=== PATIENT | female | born 1950 | race African-American/Black ===

== ENCOUNTER → 2016-09-14 | Outpatient (CLI) | payer MEDICARE, BC | LOC: WI 15:14 | PROVIDERS: ATTEND Internal Medicine | DX: Z12.31 Encounter for screening mammogram for malignant neoplasm of breast (principal) | CPT/HCPCS: 77067; G0202 ==

== ENCOUNTER → 2016-12-29 | Day surgery (SDC) | payer MEDICARE, BC ==
[~2016-12-29] MED LIST: LIDOCAINE 2% JELLY 5 ML TUBE ONE
== END ==
LOC: END 08:48
PROVIDERS: ATTEND Internal Medicine Gastroenterology
PROC: 4A0B7BZ Measurement of Gastrointestinal Pressure, Via Natural or Artificial Opening (ICD-10-PCS; principal; 2016-12-29)
DX: R13.10 Dysphagia, unspecified (principal)
CPT/HCPCS: 91010

== ENCOUNTER 2017-05-06 11:14 | Emergency (ER) | payer MEDICARE, BC ==
[2017-05-06] MEDS ORDERED: NORMAL SALINE 1000 ML 1,000 ML IV PRN (11:24)
[2017-05-06] MEDS ORDERED: KETOROLAC TROMETHAMINE INJ/PF 30 MG/1 ML SDV IV ONE (11:24)
[2017-05-06] MEDS ORDERED: ONDANSETRON HCL INJ/PF 4 MG/2 ML SDV IV ONE (11:24)
--- NOTE | 2017-05-06 11:27 | ER Document Report ---
ED Cardiac - General Stated Complaint: CHEST PAIN Time Seen by Provider: 05/06/17 11:18 Mode of Arrival: Stretcher Information source: Patient TRAVEL OUTSIDE OF THE [place] IN LAST 30 DAYS: No - HPI Patient complains to provider of: Chest pain Was the onset of pain: Sudden Is the pain a: New problem Chest pain location: Substernal Quality of pain: Sharp, Stabbing Chest pain radiation location: Neck - right Severity now: None Severity at worst: Moderate Chest pain precipitating factors: At Rest Cardiac risk factors: Hypertension, Dyslipidemia Positive cardiac history: No Associated symptoms: Headache Exacerbated by: Denies Relieved by: Nothing Similar symptoms previously: No Recently seen / treated by doctor: No Notes: Patient is a 67-year-old female with a history of hypertension, high cholesterol , presenting to the emergency room today complaining of sharp stabbing chest pain with cramping in her jaw and right-sided neck pain that started while she was sitting at her desk at work, 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, she reports the symptoms lasted 20-30 minutes and have since resolved, she does have a slight headache at this point in time as she did receive nitroglycerin via EMS as well as for aspirin in route, she denies any diaphoresis, no shortness of breath, she has been having intermittent dizzy spells over the last few weeks - Related Data Allergies/Adverse Reactions: oxycodone HCl [From Percodan] Allergy (Verified 03/25/14 16:33) oxycodone terephthalate [From Percodan] Allergy (Verified 03/25/14 16:33) Shellfish * [Shellfish] Allergy (Verified 03/25/14 16:33) tree nut Allergy (Verified 03/25/14 16:33) brazil nuts Allergy (Uncoded 03/25/14 16:33) Past Medical History - General Information source: Patient - Social History Smoking Status: Never Smoker Family History: CAD - Past Medical History Cardiac Medical History: Reports: Hx Hypercholesterolemia, Hx Hypertension Musculoskeltal Medical History: Reports Hx Arthritis Past Surgical History: Reports: Hx Gynecologic Surgery - bladder sling, Hx Hysterectomy, Hx Orthopedic Surgery, Hx Tonsillectomy - Immunizations Hx Diphtheria, Pertussis, Tetanus Vaccination: Yes Review of Systems - Review of Systems Constitutional: No symptoms reported EENT: No symptoms reported Cardiovascular: See HPI Respiratory: No symptoms reported Gastrointestinal: No symptoms reported Genitourinary: No symptoms reported Female Genitourinary: No symptoms reported Musculoskeletal: No symptoms reported Skin: No symptoms reported Hematologic/Lymphatic: No symptoms reported Neurological/Psychological: Headaches -: Yes All other systems reviewed and negative Physical Exam - Vital signs Vitals: Pulse Ox 94 05/06/17 11:15 Interpretation: Normal - General General appearance: Appears well, Alert - HEENT Head: Normocephalic, Atraumatic Eyes: Normal Pupils: PERRL - Respiratory Respiratory status: No respiratory distress Chest status: Nontender Breath sounds: Normal Chest palpation: Normal - Cardiovascular Rhythm: Regular Heart sounds: Normal auscultation Murmur: No - Abdominal Inspection: Normal Distension: No distension Bowel sounds: Normal Tenderness: Nontender Organomegaly: No organomegaly - Back Back: Normal, Nontender - Extremities General upper extremity: Normal inspection, Nontender, Normal color, Normal ROM , Normal temperature General lower extremity: Normal inspection, Nontender, Normal color, Normal ROM , Normal temperature, Normal weight bearing. No: Miya's sign - Neurological Neuro grossly intact: Yes Cognition: Normal Orientation: AAOx4 [place] Coma Scale Eye Opening: Spontaneous [place] Coma Scale Verbal: Oriented [place] Coma Scale Motor: Obeys Commands [place] Coma Scale Total: 15 Speech: Normal Motor strength normal: LUE, RUE, LLE, RLE Sensory: Normal - Psychological Associated symptoms: Normal affect, Normal mood - Skin Skin Temperature: Warm Skin Moisture: Dry Skin Color: Normal Course - Re-evaluation Re-evalutation: 05/06/17 13:28 Patient resting comfortably, asymptomatic at the present time, requesting something to eat, I did discuss with her that we will hold her for a second set of cardiac enzymes around 3:15 PM, patient is in agreement with this plan 05/06/17 15:49 Patient resting comfortably, reports feeling much better, remains asymptomatic and has eaten lunch without any difficulty, lab and imaging findings unremarkable with 2 sets of negative cardiac enzymes, patient will be discharged with instructions for follow-up and advised to return if any additional concerns, patient knowledge is understanding and agreement with this plan - Vital Signs Vital signs: Temp Pulse Resp BP Pulse Ox 17 121/70 78 L 05/06/17 15:01 05/06/17 15:01 05/06/17 15:01 - Laboratory Result Diagrams: 05/06/17 11:40 05/06/17 11:40 Laboratory results interpreted by me: 05/06/17 05/06/17 11:40 11:40 RBC 3.61 L Hct 33.9 L MCH 33.5 H Glucose 139 H Creatine Kinase 283 H - Diagnostic Test Radiology reviewed: Image reviewed, Reports reviewed - EKG Interpretation by Me EKG shows normal: Sinus rhythm Rate: Normal Rhythm: NSR Heart block present: 1st Degree When compared to previous EKG there are: No significant change Discharge - Discharge Clinical Impression: Chest pain Qualifiers: Chest pain type: unspecified Qualified Code(s): R07.9 - Chest pain, unspecified Condition: Stable Disposition: HOME, SELF-CARE Instructions: Chest Pain of Unclear Cause ([facility]) Additional Instructions: Follow up with your primary care provider in one to 2 days. Return to the emergency room immediately if symptoms worsen or any additional concerns. Forms: Return to Work Referrals: NIMO ANDREWS MD [Primary Care Provider] - Follow up as needed JOSE MANUEL LACY MD [ACTIVE STAFF] - Follow up as needed FAUZIA CANADA MD [ACTIVE STAFF] - Follow up as needed
[2017-05-06 11:52] LABS: ABSOLUTE BASOPHILS # (AUTO) 0.1 10^3/uL (0.0-0.2); ABSOLUTE EOSINOPHILS # (AUTO) 0.2 10^3/uL (0.0-0.6); ABSOLUTE LYMPHOCYTES (AUTO) 1.8 10^3/uL (0.5-4.7); ABSOLUTE MONOCYTES (AUTO) 0.6 10^3/uL (0.1-1.4); ABSOLUTE NEUT (AUTO) 6.8 10^3/uL (1.7-8.2); BASOPHILS % (AUTO) 0.8 % (0-2); EOSINOPHILS % (AUTO) 2.5 % (0-6); HEMATOCRIT 33.9 % (36.0-47.0); HEMOGLOBIN 12.1 g/dL (12.0-15.5); HGB HCT DIFFERENCE 2.4; LYMPHOCYTES % (AUTO) 19.1 % (13-45); MEAN CORPUSCULAR HEMOGLOBIN 33.5 pg (27.0-33.4); MEAN CORPUSCULAR HGB CONC 35.7 g/dL (32.0-36.0); MEAN CORPUSCULAR VOLUME 94 fl (80-97); MONOCYTES % (AUTO) 6.4 % (3-13); RED BLOOD COUNT 3.61 10^6/uL (3.72-5.28); RED CELL DISTRIBUTION WIDTH 12.5 % (11.5-14.0); SEGMENTED NEUTROPHILS % (AUTO) 71.2 % (42-78); WHITE BLOOD COUNT 9.5 10^3/uL (4.0-10.5)
--- NOTE | 2017-05-06 12:05 | RADIOLOGY REPORT (SQ) ---
EXAM DESCRIPTION: CHEST SINGLE VIEW COMPLETED DATE/TIME: 05/06/2017 11:50 am REASON FOR STUDY: bed 7 cp COMPARISON: April 2013 EXAM PARAMETERS: NUMBER OF VIEWS: One view. TECHNIQUE: Single frontal radiographic view of the chest acquired. RADIATION DOSE: NA LIMITATIONS: None. FINDINGS: LUNGS AND PLEURA: No opacities, masses or pneumothorax. No pleural effusion. MEDIASTINUM AND HILAR STRUCTURES: No masses. Contour normal. HEART AND VASCULAR STRUCTURES: Heart normal in size. Normal vasculature. BONES: Degenerative changes are identified in the thoracic spine HARDWARE: None in the chest. OTHER: No other significant finding. IMPRESSION: NO ACUTE RADIOGRAPHIC FINDING IN THE CHEST. TECHNICAL DOCUMENTATION: JOB ID: [id number]
[2017-05-06 12:14] LABS: ALANINE AMINOTRANSFERASE 32 U/L (9-52); ALBUMIN 3.5 g/dL (3.5-5.0); ALKALINE PHOSPHATASE 94 U/L (38-126); ANION GAP 10 (5-19); ASPARTATE AMINO TRANSFERASE 23 U/L (14-36); BILIRUBIN,DIRECT 0.3 mg/dL (0.0-0.4); BILIRUBIN,TOTAL 0.5 mg/dL (0.2-1.3); BLOOD UREA NITROGEN 18 mg/dL (7-20); CALCIUM 8.7 mg/dL (8.4-10.2); CARBON DIOXIDE 28 mmol/L (22-30); CHLORIDE 106 mmol/L (98-107); CREATINE KINASE 283 U/L (30-135); CREATININE RESULT 0.81 mg/dL (0.52-1.25); GLUCOSE 139 mg/dL (75-110); POTASSIUM 3.7 mmol/L (3.6-5.0); SODIUM 143.6 mmol/L (137-145); TOTAL PROTEIN 6.3 g/dL (6.3-8.2)
[2017-05-06 12:24] LABS: CREATINE KINASE MB 1.14 ng/mL (<4.55)
[2017-05-06 12:25] LABS: TROPONIN I < 0.012 ng/mL
[2017-05-06 15:15] VITALS: BP 121/70
--- NOTE | 2017-05-07 10:30 | EKG REPORT ---
SEVERITY:- ABNORMAL ECG - SINUS RHYTHM FIRST DEGREE AV BLOCK : Confirmed by: Esther Seymour 07-May-2017 10:29:15
== END 2017-05-06 16:04 | disposition home or self-care (01) ==
LOC: ER 11:14
DX: R07.89 Other chest pain (principal); I44.0 Atrioventricular block, first degree; I10 Essential (primary) hypertension; M54.2 Cervicalgia; R25.2 Cramp and spasm; R51 Headache; R42 Dizziness and giddiness; Z88.5 Allergy status to narcotic agent; Z91.013 Allergy to seafood; Z91.018 Allergy to other foods
CPT/HCPCS: 93005; 99285; 96374; 96375; 36415; 82553; 82550; 85025; 80053; 84484; 71010; 93010; J1885; J2405

== ENCOUNTER → 2017-06-01 | Outpatient (CLI) | payer MEDICARE, BC ==
--- NOTE | 2017-06-01 11:16 | RADIOLOGY REPORT (SQ) ---
EXAM DESCRIPTION: CT CHEST WITHOUT COMPLETED DATE/TIME: 06/01/2017 8:03 am REASON FOR STUDY: CHEST PAIN, UNSPECIFIED R10.13 EPIGASTRIC PAIN R07.9 CHEST PAIN, UNSPECIFIED COMPARISON: None. TECHNIQUE: CT scan performed of the chest without intravenous contrast. Images reviewed with lung, soft tissue and bone windows. Reconstructed coronal and sagittal MPR images reviewed. All images st ored on PACS. All CT scanners at this facility use dose modulation, iterative reconstruction, and/or weight based d osing when appropriate to reduce radiation dose to as low as reasonably achievable (ALARA). [facility]: Dose Right [facility]: CareDose [facility]: Dose Right [facility]: Teradose 4D [facility]: Smart Technologies RADIATION DOSE: Up-to-date CT equipment and radiation dose reduction techniques were employed. CTDIv ol: 19.4 mGy. DLP: 717 mGy-cm. mGy. LIMITATIONS: No technical limitations. FINDINGS: LUNGS AND PLEURA: No masses, infiltrates, pneumothorax. No pleural effusions, calcificati ons. HILAR AND MEDIASTINAL STRUCTURES: No identified masses or abnormal nodes. No obvious aneurysm. HEART AND VASCULAR STRUCTURES: No aneurysm. No pericardial effusion. Considerable coronary atherosc lerosis. UPPER ABDOMEN: No significant findings. Limited exam. THYROID AND OTHER SOFT TISSUES: No masses. No adenopathy. BONES: No significant finding. HARDWARE: None in the chest. OTHER: No other significant findings. IMPRESSION: Coronary atherosclerosis with no acute pulmonary disease. TECHNICAL DOCUMENTATION: JOB ID: [id number] Quality ID # [id number]: Final reports with documentation of one or more dose reduction techniques (e.g., Au tomated exposure control, adjustment of the mA and/or kV according to patient size, use of iterative reconstruction technique) 2010 [employer]- All Rights Reserved
--- NOTE | 2017-06-01 12:12 | RADIOLOGY REPORT (SQ) ---
EXAM DESCRIPTION: U/S ABDOMEN LIMITED W/O DOP COMPLETED DATE/TIME: 06/01/2017 9:21 am REASON FOR STUDY: EPIGASTRIC PAIN R10.13 EPIGASTRIC PAIN R07.9 CHEST PAIN, UNSPECIFIED COMPARISON: CT chest 06/01/2017 Abdominal ultrasound 05/22/2013 TECHNIQUE: Dynamic and static grayscale images acquired of the abdomen and recorded on PACS. Additio nal selected color Doppler and spectral images recorded. LIMITATIONS: Midline bowel gas FINDINGS: PANCREAS: Midline pancreas unremarkable LIVER: No masses. Echotexture normal. LIVER VASCULATURE: Normal directional flow of the main portal vein and hepatic veins. GALLBLADDER: No stones. Normal wall thickness. No pericholecystic fluid. ULTRASOUND-DETECTED FARRELL'S SIGN: Negative. INTRAHEPATIC DUCTS AND COMMON DUCT: CBD and intrahepatic ducts normal caliber. No filling defects. INFERIOR VENA CAVA: Normal flow. AORTA: Not well seen RIGHT KIDNEY: Normal size. Normal echogenicity. No solid or suspicious masses. No hydronephrosis. No calcifications. PERITONEAL AND RIGHT PLEURAL SPACE: No ascites or effusions. OTHER: No other significant findings. IMPRESSION: ESSENTIALLY NORMAL RIGHT UPPER QUADRANT ULTRASOUND. TECHNICAL DOCUMENTATION: JOB ID: [id number] [employer]- All Rights Reserved
== END ==
LOC: RAD 07:48
PROVIDERS: ATTEND Internal Medicine Gastroenterology
DX: R10.13 Epigastric pain (principal); R07.9 Chest pain, unspecified
CPT/HCPCS: 71250; 76705

== ENCOUNTER → 2018-02-08 | Outpatient (CLI) | payer MEDICARE, BC ==
--- NOTE | 2018-02-08 09:37 | WOMENS IMAGING REPORT ---
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 TECHNIQUE: Standard craniocaudal and mediolateral oblique views of each breast recorded using digita l acquisition. LIMITATIONS: None. FINDINGS: Findings present which are benign by mammographic criteria. No suspicious masses, calcifi cations or architectural distortion. Pertinent benign findings: Stable asymmetric parenchyma in the retroareolar right breast. Read with the assistance of CAD. .[facility] - R2 Cenova Version 1.3 .[facility] - R2 Cenova Version 1.3 .[facility] - R2 Cenova Version 2.4 .[facility] - R2 Cenova Version 2.4 .[facility] - R2 Bottom Stop Attacher Version 9.2 Benign mammographic findings may include one or more of the following: Smooth masses, popcorn/rim/co arse calcifications, asymmetries, post-procedure changes, and lesions with long-standing stability. IMPRESSION: BENIGN MAMMOGRAPHIC FINDINGS. BIRADS 2 BREAST DENSITY: a. The breasts are almost entirely fatty. BIRAD: 2 BENIGN FINDING(S) RECOMMENDATION: ROUTINE SCREENING COMMENT: The patient has been notified of the results by letter per SA requirements. Additional no tification policies are in place for contacting patient with suspicious or incomplete findings. Quality ID #225: The [employer] [place] [employer] recommends an annual screening mammogram for women aged 40 years or over. This facility utilizes a reminder system to ensure that all patients receive reminder letters, and/or direct phone calls for appointments. This includes reminders for routine scr eening mammograms, diagnostic mammograms, or other Breast Imaging Interventions when appropriate. Th is patient will be placed in the appropriate reminder system. The [place] [employer] (ACR) has developed recommendations for screening MRI of the breast s in certain patient populations, to be used in conjunction with mammography. Breast MRI surveillanc e may be appropriate for women with more than 20% lifetime risk of developing breast cancer as deter mined by genetic testing, significant family history of the disease, or history of mantle radiation f or Hodgkins Disease. ACR Practice Guidelines 2008. TECHNICAL DOCUMENTATION: FINDING NUMBER: (1) ASSESSMENT: (1) JOB ID: [id number] [employer]- All Rights Reserved Reading location - IP/workstation name: [facility]
--- NOTE | 2018-02-08 10:01 | WOMENS IMAGING REPORT ---
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 TECHNIQUE: Dual-Energy X-ray Absorptiometry (DEXA) of the AP Spine and Hip. LIMITATIONS: None. FINDINGS: LUMBAR SPINE: The bone mineral density (BMD) measured from L1-L4 in the AP projection correlates with a T-score of 2.9, which is normal as defined by the World Health Organization. HIP: The bone mineral density (BMD) measured in the left hip correlates with a T-score of 0.6, which is no rmal as defined by the World Health Organization. IMPRESSION: 1. LUMBAR SPINE: Normal 2. HIP: Normal COMMENT: The World Health Organization defines low BMD as follows: T-score: Normal: Greater than -1.0 Osteopenia: Between -1.0 and -2.5 Osteoporosis: Less than -2.5 without fractures Established osteoporosis: Less than -2.5 with fractures In general, you may wish to consider: Diagnosis Treatment Follow-up DEXA Normal BMD Prevention 2-3 years Osteopenia Prevention/Therapy 1-2 years Osteoporosis Therapy Yearly TECHNICAL DOCUMENTATION: JOB ID: [id number] [email or web address]- All Rights Reserved Reading location - IP/workstation name: [email or web address]
== END ==
LOC: WI 08:13
PROVIDERS: ATTEND Internal Medicine
DX: Z12.31 Encounter for screening mammogram for malignant neoplasm of breast (principal); Z78.0 Asymptomatic menopausal state
CPT/HCPCS: 77067; 77080

== ENCOUNTER 2018-11-30 01:39 | Observation (INO) | payer MEDICARE, BC ==
--- NOTE | 2018-11-30 02:22 | ER Document Report ---
ED Cardiac - General Stated Complaint: CHEST PAIN Time Seen by Provider: 11/30/18 02:00 TRAVEL OUTSIDE OF THE [place]. IN LAST 30 DAYS: No - HPI Notes: Patient is a 68-year-old female with a history of hypertension, hyperlipidemia, polio who presents to the emergency department with a chief complaint of chest pain. Patient states that around midnight she was laying on her left side watching TV when she developed a "little twinge" in her left arm. Patient states at that point she repositioned herself and developed left-sided chest pain. Patient states that the pain is located on the left side of her chest and underneath her left breast which radiated into her upper back, her jaw and her neck. Patient states that the pain was sharp in nature and intermittent. Patient states that the pain got so bad that she was doubled over and called EMS. Patient did take a sublingual nitro at home which provided no relief. Patient did take 324 mg of baby aspirin. Patient was given 3 nitro sprays by EMS which brought her pain level to a 0 out of 5. Patient denies abdominal pain. Patient denies shortness of breath, headache, dizziness. Patient denies nausea or vomiting. Patient does state she has bilateral lower extremity swelling which is her normal. - Related Data Allergies/Adverse Reactions: oxycodone HCl [From Percodan] Allergy (Verified 03/25/14 16:33) oxycodone terephthalate [From Percodan] Allergy (Verified 03/25/14 16:33) Shellfish * [Shellfish] Allergy (Verified 03/25/14 16:33) tree nut Allergy (Verified 03/25/14 16:33) brazil nuts Allergy (Uncoded 03/25/14 16:33) Past Medical History - General Information source: Patient - Social History Smoking Status: Never Smoker Cigarette use (# per day): No Chew tobacco use (# tins/day): No Frequency of alcohol use: None Drug Abuse: None Family History: CAD Patient has suicidal ideation: No Patient has homicidal ideation: No - Past Medical History Cardiac Medical History: Reports: Hx Hypercholesterolemia, Hx Hypertension Pulmonary Medical History: Reports: None EENT Medical History: Reports: None Neurological Medical History: Reports: None Endocrine Medical History: Reports: None Renal/ Medical History: Reports: None. Denies: Hx Peritoneal Dialysis Malignancy Medical History: Reports: None GI Medical History: Reports: None Musculoskeletal Medical History: Reports Hx Arthritis Skin Medical History: Reports None Psychiatric Medical History: Reports: None Traumatic Medical History: Reports: None Infectious Medical History: Reports: None Past Surgical History: Reports: Hx Gynecologic Surgery - bladder sling, Hx Hysterectomy, Hx Orthopedic Surgery, Hx Tonsillectomy - Immunizations Hx Diphtheria, Pertussis, Tetanus Vaccination: Yes Review of Systems - Review of Systems Constitutional: No symptoms reported EENT: No symptoms reported Cardiovascular: See HPI Respiratory: No symptoms reported Gastrointestinal: No symptoms reported Genitourinary: No symptoms reported Female Genitourinary: No symptoms reported Musculoskeletal: No symptoms reported Skin: No symptoms reported Hematologic/Lymphatic: No symptoms reported Neurological/Psychological: No symptoms reported Physical Exam - Vital signs Vitals: Temp Pulse Resp BP Pulse Ox 98.1 F 86 17 117/67 98 11/30/18 01:40 11/30/18 01:40 11/30/18 01:40 11/30/18 01:40 11/30/18 01:40 - Notes Notes: GENERAL: Well-appearing, well-nourished and in no acute distress. HEAD: Atraumatic, normocephalic. EYES: Pupils equal round and reactive to light, extraocular movements intact, sclera anicteric, conjunctiva are normal. ENT: TMs normal, nares patent, oropharynx clear without exudates. Moist mucous membranes. NECK: Normal range of motion, supple without lymphadenopathy or JVD. LUNGS: Breath sounds clear to auscultation bilaterally and equal. No wheezes rales or rhonchi. HEART: Regular rate and rhythm without murmurs, rubs or gallops. Reproducible left chest wall tenderness. ABDOMEN: Obese, Soft, nontender, normoactive bowel sounds. No guarding, no rebound. No masses appreciated. EXTREMITIES: Normal range of motion, edema noted to bilateral lower extremities, + 1 pitting edema to right leg and non pitting edema to left leg. No clubbing or cyanosis. + strong bilateral dorsalis pedis pulses. NEUROLOGICAL: Cranial nerves II through XII grossly intact. Normal speech, normal gait. PSYCH: Normal mood, normal affect. SKIN: Warm, Dry, normal turgor, no rashes or lesions noted. Course - Re-evaluation Re-evalutation: 11/30/18 02:22 Upon initial assessment patient is resting comfortably on stretcher. Patient did receive 3 nitro sprays from EMS which did bring her pain level to a 0 out of 5. Will obtain a cardiac work-up as well as a delta troponin. Patient's heart score is a 4. 11/30/18 03:02 Patient resting comfortably and denies chest pain at this time. Initial trop pending. 11/30/18 04:06 Patient continues to rest comfortably, denies chest pain. Reports that her last stress test was in 2018 and states it was normal. 11/30/18 04:[address] Duran for admission for cardiac rule out, would like a CT of the chest to rule out blood clot. We will call him with results. 11/30/18 06:17 Dr. Duran made aware of the negative chest CT, plan is to admit if second troponin negative. 11/30/18 07:24 Patient updated on plan of care and admission. Continues to deny chest pain. Resting comfortably on stretcher. 11/30/18 07:[address] Adams, made aware of second negative trop and states hospitalist will accept and assess patient. - Vital Signs Vital signs: Temp Pulse Resp BP Pulse Ox 98.2 F 86 12 101/57 L 97 11/30/18 06:50 11/30/18 01:40 11/30/18 07:00 11/30/18 06:01 11/30/18 07:00 - Laboratory Result Diagrams: 11/30/18 02:07 11/30/18 02:07 Laboratory results interpreted by me: 11/30/18 11/30/18 02:07 02:07 RBC 3.38 L Hgb 10.9 L Hct 31.8 L Est GFR (Non-Af Amer) 53 L Glucose 122 H - Diagnostic Test Radiology reviewed: Reports reviewed Radiology results interpreted by me: 11/30/18 06:00 CTA of the chest was negative for any acute abnormalities or blood clot. - EKG Interpretation by Me Additional EKG results interpreted by me: 11/30/18 02:23 EKG shows a sinus rhythm with a rate of 84, MA interval 192, QT 392, QTc 464, patient does have a left axis deviation, no ST segment changes in consecutive leads. She does have inverted T waves in lead III but this is not consecutive leads. Discharge - Discharge Clinical Impression: Chest pain Qualifiers: Chest pain type: unspecified Qualified Code(s): R07.9 - Chest pain, unspecified Condition: Stable Disposition: ADMITTED OBSERVATION Admitting Provider: Roger (Hospitalist) Unit Admitted: Telemetry
[2018-11-30 02:34] LABS: ABSOLUTE EOSINOPHILS # (AUTO) 0.2 10^3/uL (0.0-0.6); ABSOLUTE MONOCYTES (AUTO) 0.6 10^3/uL (0.1-1.4); ABSOLUTE NEUT (AUTO) 7.4 10^3/uL (1.7-8.2); BASOPHILS % (AUTO) 0.4 % (0-2); EOSINOPHILS % (AUTO) 2.3 % (0-6); HEMATOCRIT 31.8 % (36.0-47.0); HEMOGLOBIN 10.9 g/dL (12.0-15.5); LYMPHOCYTES % (AUTO) 19.1 % (13-45); MEAN CORPUSCULAR HEMOGLOBIN 32.3 pg (27.0-33.4); MEAN CORPUSCULAR HGB CONC 34.3 g/dL (32.0-36.0); MEAN CORPUSCULAR VOLUME 94 fl (80-97); MONOCYTES % (AUTO) 6.1 % (3-13); PLATELET COUNT 189 10^3/uL (150-450); RED BLOOD COUNT 3.38 10^6/uL (3.72-5.28); SEGMENTED NEUTROPHILS % (AUTO) 72.1 % (42-78); TOTAL CELLS COUNTED % (AUTO) 100 %; WHITE BLOOD COUNT 10.3 10^3/uL (4.0-10.5)
[2018-11-30 02:50] LABS: ALANINE AMINOTRANSFERASE 26 U/L (9-52); ALBUMIN 3.5 g/dL (3.5-5.0); ALKALINE PHOSPHATASE 119 U/L (38-126); ANION GAP 10 (5-19); ASPARTATE AMINO TRANSFERASE 19 U/L (14-36); BILIRUBIN,DIRECT 0.2 mg/dL (0.0-0.4); BILIRUBIN,TOTAL 0.4 mg/dL (0.2-1.3); BLOOD UREA NITROGEN 20 mg/dL (7-20); CALCIUM 9.2 mg/dL (8.4-10.2); CARBON DIOXIDE 28 mmol/L (22-30); CHLORIDE 105 mmol/L (98-107); GLUCOSE 122 mg/dL (75-110); SODIUM 142.8 mmol/L (137-145); TOTAL PROTEIN 6.3 g/dL (6.3-8.2)
--- NOTE | 2018-11-30 02:56 | RADIOLOGY REPORT (SQ) ---
EXAM DESCRIPTION: XR CHEST 1 VIEW COMPLETED DATE/TME: 11/30/2018 02:13 CLINICAL HISTORY: 68 years Female, chest pain COMPARISON: 05/07/13 NUMBER OF VIEWS/TECHNIQUE: 1/AP FINDINGS: Adequate lung volume, clear parenchyma, normal cardiac silhouette, and intact bony thorax. IMPRESSION: No acute cardiopulmonary findings.
--- NOTE | 2018-11-30 05:45 | RADIOLOGY REPORT (SQ) ---
EXAM DESCRIPTION: CT CHEST ANGIOGRAPHY WITHOUT THEN WITH IV CONTRAST COMPLETED DATE/TME: 11/30/2018 04:55 CLINICAL HISTORY: 68 years, Female, chest pain COMPARISON: None. TECHNIQUE: Axial CT images of the chest were obtained after the administration of IV contrast. MPR and MIP reconstructions were performed. Images stored on PACS. All CT scanners at this facility use dose modulation, iterative reconstruction, and/or weight based dosing when appropriate to reduce radiation dose to as low as reasonably achievable (ALARA). [facility]: Dose Right [facility]: CareDose [facility]: Dose Right [facility]: Teradose 4D [facility]: [employer] LIMITATIONS: None. FINDINGS: No pulmonary embolism is detected. The thyroid gland is normal. The central airways are patent. The heart is normal in size. There are atherosclerotic calcifications of the coronary arteries. There is no pericardial effusion. There is no mediastinal lymphadenopathy. The thoracic aorta is normal in caliber. No evidence of an aneurysm or dissection. The lungs are clear. There is no pneumothorax or pleural effusion. The upper abdomen is partially visualized. There is no acute fracture or subluxation. IMPRESSION: No CT evidence of acute pulmonary embolism. No acute findings within the chest. TECHNICAL DOCUMENTATION: Quality ID # [id number]: Final reports with documentation of one or more dose reduction techniques (e.g., Automated exposure control, adjustment of the mA and/or kV according to patient size, use of iterative reconstruction technique) copyright 2011 [employer]- All Rights Reserved
[2018-11-30] MEDS ORDERED: NITROGLYCERIN 0.4 MG/TAB 25 TAB/BOTTLE SL PRN (09:19)
[2018-11-30] MEDS ORDERED: ACETAMINOPHEN 325 MG TABLET PO PRN (09:19)
[2018-11-30] MEDS ORDERED: ONDANSETRON HCL INJ/PF 4 MG/2 ML SDV IV PRN (09:19)
[2018-11-30] MEDS ORDERED: DEXTROSE 50%-WATER 25 GM/50 ML DISP.SYRIN IV PRN ×2 (09:28)
[2018-11-30] MEDS ORDERED: DEXTROSE 40% GEL 15 GM TUBE PO PRN ×2 (09:28)
[2018-11-30] MEDS ORDERED: GLUCAGON,HUMAN RECOMB 1 MG INJ SUBCUT PRN (09:28)
[2018-11-30] MEDS ORDERED: TRAMADOL HCL 50 MG TABLET PO PRN (09:29)
[2018-11-30] MEDS ORDERED: MORPHINE SULFATE 10 MG/ML INJ IV PRN (09:30)
--- NOTE | 2018-11-30 09:39 | PDOC H&P ---
History of Present Illness Admission Date/PCP: 11/30/18 07:34 NIMO ANDREWS Patient complains of: chest pain History of Present Illness: MONIQUE DU is a 68 year old female with a past medical history of hypertension, hyperlipidemia, type 2 diabetes mellitus, polio as a child, and morbid obesity with recent multiple social stressors who presented to the e mergency department by EMS with complaint of left-sided chest pain radiating to her back and then down her arm it is worsened when lying on her right side. She reports that the pain first occurred while laying on her left side but alleviated after rolling onto her back and then resumed. She denies any other aggravating factors. Her discomfort was not associated with dyspnea, diaphoresis, nausea, dizziness/headache. Patient self administered sublingual nitro tab and 324 mg ASA; when pain persisted she notified EMS. EMS provided 3 sublingual sprays of nitro which then did alleviate patient's discomfort. She reports that she is followed by a automotive engineering teacher in [place] for orthostatic symptoms and possible dysrhythmia (reports that she has had a event monitoring showing that her heart "stops "while sleeping). Home medications are noted to include Telmisartan, spironolactone, and furosemide. Evaluation in the emergency department was unremarkable with normal vital signs, EKG demonstrating normal sinus rhythm without ST segment changes, 9 chest x-ray, and normal laboratory evaluation including 2 negative troponins. Although her pain is atypical, the patient has multiple risk factors and therefore is referred to the hospitalist service for admission and evaluation for chest pain rule out. Past Medical History Cardiac Medical History: Reports: Hyperlipidema, Hypertension Denies: Coronary Artery Disease, Myocardial Infarction Pulmonary Medical History: Reports: None EENT Medical History: Reports: None Neurological Medical History: Reports: None Endocrine Medical History: Reports: Diabetes Mellitus Type 2, Obesity Renal/ Medical History: Reports: None Malignancy Medical History: Reports: None GI Medical History: Reports: None Musculoskeltal Medical History: Reports: Arthritis Skin Medical History: Reports: None Psychiatric Medical History: Reports: None Traumatic Medical History: Reports: None Infectious Medical History: Reports: None Past Surgical History Past Surgical History: Reports: Hysterectomy, Orthopedic Surgery, Tonsillectomy Social History Information Source: Patient Lives with: Alone Smoking Status: Never Smoker Frequency of Alcohol Use: Occasional Hx Recreational Drug Use: No Hx Prescription Drug Abuse: No - Advance Directive Resuscitation Status: Full Code Family History Family History: CAD, Hypertension Parental Family History Reviewed: Yes Children Family History Reviewed: Yes Sibling(s) Family History Reviewed.: Yes Medication/Allergy Home Medications: Montelukast Sodium [Singulair 10 mg Tablet] 10 mg PO QHS 08/29/12 Atorvastatin Calcium [Lipitor 80 mg Tablet] 80 mg PO QHS 11/30/18 Fexofenadine HCl [Joan] 180 mg PO DAILY 11/30/18 Furosemide [Lasix 20 mg Tablet] 20 mg PO QAM 11/30/18 Gabapentin [Neurontin 100 mg Capsule] 100 mg PO 11/30/18 Metformin HCl [Glucophage 500 mg Tablet] 500 mg PO BIDACBS 11/30/18 Oxybutynin Chloride [Oxybutynin Chloride ER] 10 mg PO DAILY 11/30/18 Pantoprazole Sodium [Protonix [address] Tablet] 40 mg PO QAM 11/30/18 Spironolactone [Aldactone] 50 mg PO DAILY 11/30/18 Telmisartan [Micardis 80 mg Tablet] 80 mg PO DAILY 11/30/18 Allergies/Adverse Reactions: oxycodone HCl [From Percodan] Allergy (Verified 03/25/14 16:33) oxycodone terephthalate [From Percodan] Allergy (Verified 03/25/14 16:33) Shellfish * [Shellfish] Allergy (Verified 03/25/14 16:33) tree nut Allergy (Verified 03/25/14 16:33) brazil nuts Allergy (Uncoded 03/25/14 16:33) Review of Systems Constitutional: ABSENT: chills, fever(s), headache(s), weight gain, weight loss Eyes: ABSENT: visual disturbances Ears: ABSENT: hearing changes Cardiovascular: PRESENT: as per HPI Respiratory: ABSENT: cough, hemoptysis Gastrointestinal: ABSENT: abdominal pain, constipation, diarrhea, hematemesis, hematochezia, nausea, vomiting Genitourinary: ABSENT: dysuria, hematuria Musculoskeletal: ABSENT: joint swelling Integumentary: ABSENT: rash, wounds Neurological: ABSENT: abnormal gait, abnormal speech, confusion, dizziness, focal weakness, syncope Psychiatric: ABSENT: anxiety, depression, homidical ideation, suicidal ideation Endocrine: ABSENT: cold intolerance, heat intolerance, polydipsia, polyuria Hematologic/Lymphatic: ABSENT: easy bleeding, easy bruising Physical Exam Vital Signs: Temp Pulse Resp BP Pulse Ox 98.4 F 86 15 128/64 H 94 11/30/18 08:01 11/30/18 01:40 11/30/18 08:01 11/30/18 08:01 11/30/18 08:01 Intake & Output 11/29/18 11/30/18 12/01/18 06:59 06:59 06:59 Weight 132.449 kg General appearance: PRESENT: no acute distress, morbidly obese, well-developed, well-nourished Head exam: PRESENT: atraumatic, normocephalic Eye exam: PRESENT: conjunctiva pink, EOMI, PERRLA. ABSENT: scleral icterus Ear exam: PRESENT: normal external ear exam Mouth exam: PRESENT: moist, tongue midline Neck exam: ABSENT: carotid bruit, JVD, lymphadenopathy, thyromegaly Respiratory exam: PRESENT: clear to auscultation zoran, symmetrical, unlabored. ABSENT: rales, rhonchi, wheezes Cardiovascular exam: PRESENT: RRR, +S1, +S2. ABSENT: diastolic murmur, rubs, systolic murmur Pulses: PRESENT: normal dorsalis pedis pul Vascular exam: PRESENT: normal capillary refill GI/Abdominal exam: PRESENT: normal bowel sounds, soft. ABSENT: distended, guarding, mass, organolmegaly, rebound, tenderness Rectal exam: PRESENT: deferred Extremities exam: PRESENT: full ROM. ABSENT: calf tenderness, clubbing, pedal edema Neurological exam: PRESENT: alert, awake, oriented to person, oriented to place, oriented to time, oriented to situation, CN II-XII grossly intact. ABSENT: motor sensory deficit Psychiatric exam: PRESENT: appropriate affect, normal mood. ABSENT: homicidal ideation, suicidal ideation Skin exam: PRESENT: dry, intact, warm. ABSENT: cyanosis, rash Results Laboratory Results: 11/30/18 02:07 11/30/18 02:07 11/30/18 11/30/18 02:07 02:07 WBC 10.3 RBC 3.38 L Hgb 10.9 L Hct 31.8 L MCV 94 MCH 32.3 MCHC 34.3 RDW 13.0 Plt Count 189 Seg Neutrophils % 72.1 Lymphocytes % 19.1 Monocytes % 6.1 Eosinophils % 2.3 Basophils % 0.4 Absolute Neutrophils 7.4 Absolute Lymphocytes 2.0 Absolute Monocytes 0.6 Absolute Eosinophils 0.2 Absolute Basophils 0.0 Sodium 142.8 Potassium 4.0 Chloride 105 Carbon Dioxide 28 Anion Gap 10 BUN 20 Creatinine 1.03 Est GFR ( Amer) > 60 Est GFR (Non-Af Amer) 53 L Glucose 122 H Calcium 9.2 Total Bilirubin 0.4 AST 19 ALT 26 Alkaline Phosphatase 119 Total Protein 6.3 Albumin 3.5 11/30/18 11/30/18 02:07 06:12 Troponin I < 0.012 < 0.012 Impressions: Chest X-Ray 11/30/18 02:13 IMPRESSION: No acute cardiopulmonary findings. Chest/Abdomen CTA 11/30/18 04:55 IMPRESSION: No CT evidence of acute pulmonary embolism. No acute findings within the chest. TECHNICAL DOCUMENTATION: Quality ID # [id number]: Final reports with documentation of one or more dose reduction techniques (e.g., Automated exposure control, adjustment of the mA and/or kV according to patient size, use of iterative reconstruction technique) copyright 2011 [employer]- All Rights Reserved Assessment and Plan - Diagnosis (1) Chest pain Qualifiers: Chest pain type: unspecified Qualified Code(s): R07.9 - Chest pain, unspecified Is this a current diagnosis for this admission?: Yes Plan: Patient presents with atypical chest pain symptoms with multiple risk factors of morbid obesity, hypertension, hyperlipidemia, significant family history, and age. Heart score 4. Patient is admitted to the medical floor on continuous cardiac telemetry. We will continue to trend troponins; so far negative x2. Daily aspirin therapy. We will obtain A1c and lipid panel with a.m. lab work for risk stratification. Continue the patient's home antihypertensive regiment. Sublingual nitroglycerin as needed for chest pain; IV morphine for unrelieved discomfort. Cardiac diet; n.p.o. after midnight. Plan for stress testing tomorrow. (2) Hypertension Qualifiers: Hypertension type: essential hypertension Qualified Code(s): I10 - Essential (primary) hypertension Is this a current diagnosis for this admission?: Yes Plan: Patient endorses a history of hypertension. Her home dose telmisartan, spironolactone, and furosemide are continued. Cardiac diet. (3) Hyperlipidemia Is this a current diagnosis for this admission?: Yes Plan: Lipid panel with a.m. lab work. Continue home dose atorvastatin. Cardiac diet. (4) Diabetes mellitus type 2 in obese Is this a current diagnosis for this admission?: Yes Plan: A1c with a.m. lab work. Hold home dose metformin while admitted. Accu-Cheks AC and at bedtime with Humalog for sliding scale coverage. elementary educator and registered dietitian are consulted. Cardiac/consistent carb diet. (5) Morbid obesity with BMI of 40.0-44.9, adult Is this a current diagnosis for this admission?: Yes Plan: BMI 42.5. Consistent carb/cardiac diet. Registered dietitian and special education paraeducator consulted. Lifestyle modification and dietary discretion advised. - Time Time Spent with patient: 35 or more minutes Medications reviewed and adjusted accordingly: Yes Anticipated discharge: Home Within: within 24 hours
[2018-11-30] MEDS ORDERED: (PENDING PHARMACY ID) (Spironolactone [Aldactone] 50 MG) PO SCH (10:00)
[2018-11-30] MEDS ORDERED: (PENDING PHARMACY ID) (Telmisartan [Micardis 80 Mg Tablet] 80 MG) PO SCH (10:00)
[2018-11-30] MEDS ORDERED: (PENDING PHARMACY ID) (Oxybutynin Chloride [Oxybutynin Chloride Er] 10 MG) PO SCH (10:00)
[2018-11-30] MEDS: OXYBUTYNIN CHLORIDE 5 MG TABLET PO SCH (10:11)
[2018-11-30] MEDS: LOSARTAN POTASSIUM 50 MG TABLET PO SCH (10:11)
[2018-11-30] MEDS: SPIRONOLACTONE 25 MG TABLET PO SCH (10:12)
[2018-11-30] MEDS: ASPIRIN 81 MG TABLET, ENT COATED PO SCH (10:12)
--- NOTE | 2018-11-30 10:18 | EKG REPORT ---
SEVERITY:- ABNORMAL ECG - SINUS RHYTHM PROBABLE LEFT VENTRICULAR HYPERTROPHY : Confirmed by: Esther Seymour 30-Nov-2018 10:17:46
[2018-11-30] MEDS: INSULIN REG, HUMAN 100 UNIT/ML 3 ML VIAL (PYX) SUBCUT SCH ×3 (11:48→22:16)
[2018-11-30 12:16] LABS: HEMATOCRIT 32.3 % (36.0-47.0); MEAN CORPUSCULAR VOLUME 94 fl (80-97); PLATELET COUNT 174 10^3/uL (150-450); RED BLOOD COUNT 3.44 10^6/uL (3.72-5.28); WHITE BLOOD COUNT 8.2 10^3/uL (4.0-10.5)
[2018-11-30 12:54] LABS: ANION GAP 11 (5-19); BLOOD UREA NITROGEN 20 mg/dL (7-20); CALCIUM 9.4 mg/dL (8.4-10.2); CARBON DIOXIDE 25 mmol/L (22-30); CHLORIDE 105 mmol/L (98-107); GLUCOSE 147 mg/dL (75-110); POTASSIUM 4.2 mmol/L (3.6-5.0); SODIUM 141.3 mmol/L (137-145)
[2018-11-30] MEDS ORDERED: ATORVASTATIN CALCIUM 80 MG TABLET PO SCH (22:00)
[2018-11-30] MEDS ORDERED: MONTELUKAST SODIUM 10 MG TABLET PO SCH (22:00)
[2018-12-01 05:31] LABS: CHOLESTEROL 119.94 mg/dL (0-200); TRIGLYCERIDES 97 mg/dL (<150)
[2018-12-01 05:44] LABS: DIRECT LDL 65 mg/dL (<100)
[2018-12-01] MEDS: INSULIN REG, HUMAN 100 UNIT/ML 3 ML VIAL (PYX) SUBCUT SCH ×2 (08:00→11:06)
[2018-12-01] MEDS ORDERED: FUROSEMIDE 20 MG TABLET PO SCH (08:00)
[2018-12-01] MEDS ORDERED: PANTOPRAZOLE SODIUM 40 MG TABLET.DR PO SCH (08:00)
[2018-12-01] MEDS: ASPIRIN 81 MG TABLET, ENT COATED PO SCH (11:10)
[2018-12-01] MEDS: LOSARTAN POTASSIUM 50 MG TABLET PO SCH (11:11)
[2018-12-01] MEDS: OXYBUTYNIN CHLORIDE 5 MG TABLET PO SCH (11:15)
[2018-12-01] MEDS ORDERED: REGADENOSON INJ 0.4 MG/5 ML DISP.SYRIN IV ONE (13:32)
[2018-12-01 13:33] VITALS: BP 141/83
[2018-12-01] MEDS: SPIRONOLACTONE 25 MG TABLET PO SCH (13:47)
--- NOTE | 2018-12-01 19:18 | DRAGON STRESS TEST REPORT ---
Intravenous Lexiscan Cardiolite stress test using single photon emmision computerized tomography. Date of procedure: 12/01/2018. Ordering Provider: Ms. Sera Bill. Nurse practitioner.Patient's status: Inpatient Indication: Chest pain. Coronary risk factors: Age, diabetes mellitus, hypertension, dyslipidemia, and family history of coronary artery disease. Resting EKG: Sinus Rhythm. Within normal limits. Stress EKG: No changes of ischemia. The patient had no chest pain or discomfort, and there were no arrhythmias seen. Reason for termination: Protocol. Conclusions: Normal EKG and hemodynamic response to IV Lexiscan. Nuclear data: At rest the patient was given 15.97 millicuries of technetium 99m sestamibi injected intravenously. As per protocol rest non gated SPECT images were obtained. Subsequently the patient was given intravenous Lexiscan at a dose of 0.4 mg in 5 mL intravenously, followed by flush with normal saline. Subsequently the stress dose of 43.9 millicuries of technetium 99m sestamibi was injected intravenously. As per protocol stress gated images were obtained. Nuclear interpretation: Review of images showed that all segments of the myocardium had normal perfusion at rest, and normal perfusion post stress with IV Lexiscan. All segments of the myocardium had normal motion, contraction, and thickening by gated study. T. I D. ratio was normal at 1.18. There is no transient ischemic dilatation of the left ventricle. Computer read rest, and stress left ventricular ejection fraction were 59 %, and 57 %, respectively. Conclusion: 1. There is no scintigraphic evidence of Lexiscan induced myocardial ischemia. 2. There is no scintigraphic evidence of myocardial infarction/scar. Recommendations: Aggressive risk factor modification, and treating the underlying co- morbidities. MTDD
--- NOTE | 2018-12-04 16:29 | PDOC DISCHARGE SUMMARY ---
General - Admit/Disc Date/PCP Admission Date/Primary Care Provider: 11/30/18 07:34 NIMO ANDREWS Discharge Date: 12/01/18 - Discharge Diagnosis (1) Chest pain Is this a current diagnosis for this admission?: Yes Summary: ACS is ruled out; chest discomfort is likely musculoskeletal (pain was positional and reproducible) in combination with situational anxiety (close family member this weekend secondary to heart disease). Patient presents with atypical chest pain symptoms with multiple risk factors of morbid obesity, hypertension, hyperlipidemia, significant family history, and age. Heart score 4. Patient was admitted to the medical floor on continuous cardiac telemetry. Troponins negative x3. A1C and lipid panel were acceptable. Cardiolite stress test was negative. The patient's home home antihypertensive regiment, statin, and aspirin therapy were continued. At time of discharge, the patient was in stable condition, asymptomatic, and maintaining oxygen saturations on room air. She was instructed to continue her home medication regiment, including atorva statin and aspirin, unchanged. She was instructed to follow-up with her primary care provider within 1 week. She was also advised to contact her established tugboat pilot and notify them of this admission; follow-up as directed. She is encouraged to return to the emergency department as needed for concerning symptoms (2) Hypertension Is this a current diagnosis for this admission?: Yes Summary: Patient endorses a history of hypertension. Blood pressures are acceptable on her home dose telmisartan, spironolactone, and furosemide. Lifestyle modifications and dietary discretion is advised; continue cardiac diet. (3) Hyperlipidemia Is this a current diagnosis for this admission?: Yes Summary: Lipid panel is acceptable. Continue home dose atorvastatin and cardiac diet. (4) Diabetes mellitus type 2 in obese Is this a current diagnosis for this admission?: Yes Summary: A1C 5.4% Resume outpatient regiment. (5) Morbid obesity with BMI of 40.0-44.9, adult Is this a current diagnosis for this admission?: Yes Summary: BMI 42.5. Consistent carb/cardiac diet. Registered dietitian and cosmetology educator were consulted. Lifestyle modification and dietary discretion advised. - Additional Information Resuscitation Status: Full Code Discharge Diet: Cardiac, Diabetic Discharge Activity: Activity As Tolerated, Balance Activity w/Rest, Slowly Increase Activity Home Medications: Montelukast Sodium [Singulair 10 mg Tablet] 10 mg PO QHS 08/29/12 Aspirin [Ecotrin 81 mg EC Tablet] 81 mg PO QHS 11/30/18 Atorvastatin Calcium [Lipitor 80 mg Tablet] 80 mg PO QHS 11/30/18 Fexofenadine HCl [Joan] 180 mg PO QHS 11/30/18 Furosemide [Lasix 20 mg Tablet] 20 mg PO QAM 11/30/18 Gabapentin [Neurontin 100 mg Capsule] 200 mg PO Q8 11/30/18 Iron,Carbonyl/Ascorbic Acid [Iron 100-Vitamin C Tablet] 1 each PO QHS 11/30/18 Metformin HCl [Glucophage 500 mg Tablet] 500 mg PO BIDACBS 11/30/18 Oxybutynin Chloride [Oxybutynin Chloride ER] 10 mg PO QHS 11/30/18 Pantoprazole Sodium [Protonix [address] Tablet] 40 mg PO QHS 11/30/18 Spironolactone [Aldactone] 50 mg PO QHS 11/30/18 Telmisartan [Micardis 80 mg Tablet] 80 mg PO QHS 11/30/18 Acetaminophen [Tylenol 325 mg Tablet] 650 mg PO Q4HP PRN tablet 12/01/18 History of Present Illness History of Present Illness: MONIQUE DU is a 68 year old female with a past medical history of hypertension, hyperlipidemia, type 2 diabetes mellitus, polio as a child, and morbid obesity with recent multiple social stressors who presented to the emergency department by EMS with complaint of left-sided chest pain radiating to her back and then down her arm it is worsened when lying on her right side. She reports that the pain first occurred while laying on her left side but alleviated after rolling onto her back and then resumed. She denies any other aggravating factors. Her discomfort was not associated with dyspnea, diaphoresis, nausea, dizziness/headache. Patient self administered sublingual nitro tab and 324 mg ASA; when pain persisted she notified EMS. EMS provided 3 sublingual sprays of nitro which then did alleviate patient's discomfort. She reports that she is followed by a tugboat pilot in [place] for orthostatic symptoms and possible dysrhythmia (reports that she has had a event monitoring showing that her heart "stops "while sleeping). Home medications are noted to include Telmisartan, spironolactone, and furosemide. Evaluation in the emergency department was unremarkable with normal vital signs, EKG demonstrating normal sinus rhythm without ST segment changes, 9 chest x-ray, and normal laboratory evaluation including 2 negative troponins. Although her pain is atypical, the patient has multiple risk factors and therefore is referred to the hospitalist service for admission and evaluation for chest pain rule out. Physical Exam Vital Signs: Temp Pulse Resp BP Pulse Ox 98.5 F 79 18 141/83 H 99 12/01/18 15:55 12/01/18 15:55 12/01/18 15:55 12/01/18 15:55 12/01/18 15:55 General appearance: PRESENT: no acute distress, morbidly obese, well-developed, well-nourished Head exam: PRESENT: atraumatic, normocephalic Eye exam: PRESENT: conjunctiva pink, EOMI, PERRLA. ABSENT: scleral icterus Ear exam: PRESENT: normal external ear exam Mouth exam: PRESENT: moist, tongue midline Neck exam: ABSENT: carotid bruit, JVD, lymphadenopathy, thyromegaly Respiratory exam: PRESENT: clear to auscultation zoran. ABSENT: rales, rhonchi, wheezes Cardiovascular exam: PRESENT: RRR. ABSENT: diastolic murmur, rubs, systolic murmur Pulses: PRESENT: normal dorsalis pedis pul Vascular exam: PRESENT: normal capillary refill GI/Abdominal exam: PRESENT: normal bowel sounds, soft. ABSENT: distended, guarding, mass, organolmegaly, rebound, tenderness Rectal exam: PRESENT: deferred Extremities exam: PRESENT: full ROM. ABSENT: calf tenderness, clubbing, pedal edema Neurological exam: PRESENT: alert, awake, oriented to person, oriented to place, oriented to time, oriented to situation, CN II-XII grossly intact. ABSENT: motor sensory deficit Psychiatric exam: PRESENT: appropriate affect, normal mood. ABSENT: homicidal ideation, suicidal ideation Skin exam: PRESENT: dry, intact, warm. ABSENT: cyanosis, rash Results Laboratory Results: 11/30/18 11:57 11/30/18 11:57 11/30/18 11/30/18 11/30/18 02:07 06:12 11:57 Troponin I < 0.012 < 0.012 < 0.012 Impressions: Chest X-Ray 11/30/18 02:13 IMPRESSION: No acute cardiopulmonary findings. Chest/Abdomen CTA 11/30/18 04:55 IMPRESSION: No CT evidence of acute pulmonary embolism. No acute findings within the chest. TECHNICAL DOCUMENTATION: Quality ID # 436: Final reports with documentation of one or more dose reduction techniques (e.g., Automated exposure control, adjustment of the mA and/or kV according to patient size, use of iterative reconstruction technique) copyright 2011 [employer]- All Rights Reserved Qualifiers - * PATIENT BEING DISCHARGED WITH ANY OF THE FOLLOWING DIAGNOSIS: No Acute Heart Failure Is this a Heart Failure Patient?: No Plan Discharge Plan: Follow-up with primary care doctor within 1 week. Patient instructed to notify established outpatient tugboat pilot of admission and to follow up as directed. Take medications as prescribed. Return to the emergency department as needed for concerning symptoms. Time Spent: Less than 30 Minutes
== END 2018-12-01 16:45 | disposition home or self-care (01) ==
LOC: ER 01:39 → EH 07:34 → 4W 11:27 → 4N 14:53
PROVIDERS: ADMIT Internal Medicine; ATTEND Internal Medicine
DX: R07.89 Other chest pain (principal); I10 Essential (primary) hypertension; E78.5 Hyperlipidemia, unspecified; E66.01 Morbid (severe) obesity due to excess calories; F41.8 Other specified anxiety disorders; E11.9 Type 2 diabetes mellitus without complications; M79.89 Other specified soft tissue disorders; Z63.4 Disappearance and death of family member; Z68.41 Body mass index [BMI] 40.0-44.9, adult; Z79.82 Long term (current) use of aspirin; Z79.899 Other long term (current) drug therapy; Z79.84 Long term (current) use of oral hypoglycemic drugs; Z82.49 Family history of ischemic heart disease and other diseases of the circulatory system
CPT/HCPCS: 93005; 99285; 36415 ×2; 82962 ×2; 85025; 85027; 80048; 80053; 84484; 83036; 80061; 93017; 71045; 78452; 71275; 93010; A9500; J2785; A9270 ×13; J3490 ×2; Q9969; G0378; J1815

== ENCOUNTER → 2019-02-27 | Outpatient (CLI) | payer MEDICARE, BC ==
--- NOTE | 2019-02-27 14:04 | WOMENS IMAGING REPORT ---
EXAM DESCRIPTION: BILAT SCREENING MAMMO W/CAD COMPLETED DATE/TIME: 02/27/2019 1:20 pm REASON FOR STUDY: Z12.31 ENCOUNTER FOR SCREENING MAMMOGRAM FOR MALIGNANT NEOPLASM OF BREAST Z12.31 ENCNTR SCREEN MAMMOGRAM FOR MALIGNANT NEOPLASM OF JAIRO COMPARISON: [id number] EXAM PARAMETERS: Standard craniocaudal and mediolateral oblique views of each breast recorded using digital acquisition. Read with the assistance of CAD. .[facility] - [employer] Version 9.2 LIMITATIONS: None. FINDINGS: No suspicious masses, suspicious calcifications or architectural distortion. No areas of c oncern. IMPRESSION: Negative MAMMOGRAM. BIRADS 1 BREAST DENSITY: a. The breasts are almost entirely fatty. BIRAD: ASSESSMENT: 1 NEGATIVE RECOMMENDATION: ROUTINE SCREENING COMMENT: The patient has been notified of the results by letter per MQSA requirements. Additional no tification policies are in place for contacting patient with suspicious or incomplete findings. Quality ID #225: The [employer] recommends an annual screening mammogram for women aged 40 years or over. This facility utilizes a reminder system to ensure that all patients receive reminder letters, and/or direct phone calls for appointments. This includes reminders for routine scr eening mammograms, diagnostic mammograms, or other Breast Imaging Interventions when appropriate. Th is patient will be placed in the appropriate reminder system. TECHNICAL DOCUMENTATION: FINDING NUMBER: (1) ASSESSMENT: (1) JOB ID: [id number] [employer]- All Rights Reserved Reading location - IP/workstation name: [email or web address]
== END ==
LOC: WI 14:58
PROVIDERS: ATTEND Internal Medicine
DX: Z12.31 Encounter for screening mammogram for malignant neoplasm of breast (principal)
CPT/HCPCS: 77067

== ENCOUNTER → 2020-03-13 | Outpatient (CLI) | payer MEDICARE, BC ==
--- NOTE | 2020-03-13 09:58 | WOMENS IMAGING REPORT ---
EXAM DESCRIPTION: BILAT SCREENING MAMMO W/CAD IMAGES COMPLETED DATE/TIME: 03/13/2020 8:53 am REASON FOR STUDY: Z12.31 ENCNTR SCREEN MAMMOGRAM FOR MALIGNANT NEOPLASM OF BREAST Z12.31 ENCNTR SCR EEN MAMMOGRAM FOR MALIGNANT NEOPLASM OF JAIRO COMPARISON: 02/27/2019, 02/08/2018, 09/14/2016 EXAM PARAMETERS: Standard craniocaudal and mediolateral oblique views of each breast recorded using digital acquisition. Read with the assistance of CAD. .[facility] - [place] [employer] Version 9.2 LIMITATIONS: None. FINDINGS: No suspicious masses, suspicious calcifications or architectural distortion. No areas of c oncern. IMPRESSION: NEGATIVE MAMMOGRAM. BIRADS 1 BREAST DENSITY: a. The breasts are almost entirely fatty. BIRAD: ASSESSMENT: 1 NEGATIVE RECOMMENDATION: ROUTINE SCREENING COMMENT: The patient has been notified of the results by letter per MQSA requirements. Additional no tification policies are in place for contacting patient with suspicious or incomplete findings. Quality ID #225: The [employer] recommends an annual screening mammogram for women aged 40 years or over. This facility utilizes a reminder system to ensure that all patients receive reminder letters, and/or direct phone calls for appointments. This includes reminders for routine scr eening mammograms, diagnostic mammograms, or other Breast Imaging Interventions when appropriate. Th is patient will be placed in the appropriate reminder system. TECHNICAL DOCUMENTATION: FINDING NUMBER: (1) ASSESSMENT: (1) JOB ID: [id number] 2010 [employer]- All Rights Reserved Reading location - IP/workstation name: [email or web address]
== END ==
LOC: WI 08:15
PROVIDERS: ATTEND Internal Medicine
DX: Z12.31 Encounter for screening mammogram for malignant neoplasm of breast (principal)
CPT/HCPCS: 77067